=== PATIENT | female | born 1965 | race Caucasian/White ===

== ENCOUNTER 2016-06-28 13:24 | Inpatient (IN) | payer OTHER ==
[~2016-06-28] VITALS: Ht 165.1 cm; Wt 127.0 kg
[2016-06-28 16:16] VITALS: PULSE 69
[2016-06-28 16:46] VITALS: BP 148/71; RESP 15
[2016-06-28 19:45] VITALS: Ht 165.1 cm; Wt 127.0 kg
[2016-06-28 20:00] VITALS: BP 137/73; RESP 20
[2016-06-28 20:11] VITALS: PULSE 61
--- NOTE | 2016-06-28 20:44 | HP ---
Date/Time of Note Date/Time of Note DATE: 06/28/16 TIME: 20:43 Assessment/Plan VTE Prophylaxis VTE Prophylaxis Intervention: other (Lovenox) Lines/Catheters IV Catheter Type (from Nrsg): Peripheral IV Assessment/Plan Assessment/Plan 1) Lower Extremity Swelling, Bilateral - Admit to Telemetry - Serial Enzymes x 2 more sets, although it has been 18 hours+ since the first set was done - EKG in AM - Consider Echocardiogram - CONSULT: Cardio - AM Team to call 2) Nausea, Left Arm Pain, Left Neck Pain, Upper Back Pain - Rule Out Cardiac Cause - See above 3) Acid Reflux - Pepcid BID HPI/ROS Admit Date/Time Admit Date/Time Jun 28, 2016 at 15:45 Hx of Present Illness Patient is a Direct Admit from [facility]. It seems she was transferred for Chest Pain R/O HI, but patient denies any Chest Pain. She states she woke up on the morning of 06/28 with nausea, pain in her left arm and in the right side of her neck and in her upper back. She states that the pain has been fading all day, but that it flares up occasionally. (While in the [place] [facility], I am not sure what treatment she received as no documentation was included in the Transfer Paperwork other than lab resualt, LE Doppler prelim results, an EKG and a CD of her CXR) Patient denies any cardiac history, but states she had the same pain 2 days prior. No associated sweating or SOB. However, patient states she gets SOB easily when hiking or going up stairs. She mentions aches all over her body, but when asked specifically about cramps in her calves when she walks, relieved by rest, she mentions cramps in her feet, but not sure if they are cramps or just pains from being on her feet so long at work. Feels that these pains improve with rest. The reason she came in for evaluation is because of the swelling in her legs over the past 2 weeks. She has not had swelling this bad before. No recent weight gain. Previously up to 300. Tried and lost 30, but up 10 lbs at 280 now. No cough, wheeze or SOB. Currently mild nausea and a mild headache. No chest pain. No fever, chills, dizziness, cough, wheeze, sore throat or other specific symptoms. LABS: WBC: 9.1 with normal differential H/H: 13.1/39.9 with normal indices PLT: 215 Na+: 142 K+: 4.2 Cl-: 103 CO2: 27 BUN/Cr: 16/0.66 Ca: 9.0 proBNP: 28 Trop I: <0.01 UA: Negative/WNL except s.g. >= 1.030 LE Doppler, Bilateral LE: No DVTs EKG done there, interpreted by me tonight: NSR @ 85 BPM. No acute changes. NOTE: I spoke with VINCE Osuna at the [facility] @ [phone] and explained the situation. He informed me that the patient left there at 3:54 pm, and that the above labs were the only set done, and they were done at 0335. He pulled up the notes and faxed them to the number provided by our staff, and they had not arrived before I left the floor. ROS General: Admits: Denies: Fever, Chills, Poor Appetite, Generalized Body Aches Eyes: Admits: Denies: Blurry Vision, Double Vision HENT: Admits: Denies: Ear Pain/Pressure, Runny/Stuffy Nose, Sore Throat Cardiovascular: Admits: Leg Swelling, bilateral Denies: Chest Pain, Palpitations Pulmonary: Admits: Shortness of Breath with exertion Denies: Cough, Wheeze Gastrointestinal: Admits: Nausea, Diarrhea once in the other ER, watery, no blood or mucus Denies: Abdominal Pain, Vomiting, Blood in Stool, Black-Colored Stool Urogenital: Admits: Denies: Burning with Urination, Urinary Frequency Musculoskeletal: Admits: Multiple aches and pains, but nothing new or significant. No diagnosis of arthritis or fibromyalgia Denies: Neurological: Admits: Headache Denies: Dizziness, Numbness, Tingling, Shooting Pains Integumentary: Admits: Rash an the lower part of both legs, present for 2 days. 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 [employer] Alcohol Use: none Smoking Status: Never smoker Drug Use: none Exam/Review of Systems Vital Signs Vitals Vital Signs Date Time Temp Pulse Resp B/P Pulse Ox O2 Delivery O2 Flow Rate FiO2 06/28/16 20:11 61 06/28/16 16:46 97.9 15 148/71 94 Exam Exam General: Morbidly obese female, sleeping soundly but rouses with a start, alert and oriented x 3, in no acute distress VS reviewed, unremarkable Eyes: Sclera White, EOMI HENT: Normocephalic/Atraumatic, External Ears/Nose Normal, Moist Mucus Membranes Neck: Supple, Trachea Midline Cardiovascular: Normal Rate, Normal Rhythm, Normal S1 and S2, No Murmur, No Extra Sounds, Radial pulse +2/4, 1+ pitting edema to upper 1/3 bilateral LE. DP pulses +2/4 and equal bilateral feet. Pulmonary: Clear to Auscultation Bilaterally, Normal Respiratory Effort, No Rales, Rhonchi or Wheezes Gastrointestinal: Normoactive Bowel Sounds, Obese, Soft, Non-Tender/Non- Distended Urogenital: Deferred Musculoskeletal: Normal Muscle Bulk and Tone Neurological: CN II - XII Grossly Intact, Non-Focal, Speech Normal Integumentary: Normal Moisture and Temperature, Good Turgor, No Jaundice, Circumfirential band of multiple red, petechial spots (2 - 4 mm in diameter), approximately 8 cm wide located on Right Lower Extremity, lower 1/3. On Left, in same area is a diffuse paink rash that blanches and scattered light pink macules, approximately 1 - 1.5 cm in diameter that do not seem to young. No induration, fluctuance or other local skin findings. Lymphatic: No Cervical Lymphadenopathy Psychiatric: Appropriate Mood and Affect, Good Eye Contact SYED MCCAULEY DO Jun 28, 2016 20:44
[2016-06-28] MEDS ORDERED: HYDROCODONE/APAP (5/325) TAB PO PRN (21:00)
[2016-06-28] MEDS ORDERED: morphine 2 MG INJ IV PRN (21:00)
[2016-06-28] MEDS ORDERED: NACL 0.9% 3 ML SYG IV SCH (21:00)
[2016-06-28] MEDS ORDERED: ACETAMINOPHEN 325 MG TAB PO PRN (21:00)
[2016-06-28] MEDS ORDERED: NITROGLYCERIN (SL) 0.4 MG TAB SL PRN (21:00)
[2016-06-28] MEDS ORDERED: METOCLOPRAMIDE 10 MG INJ IV PRN (21:00)
[2016-06-28 21:37] LABS: CREATINE KINASE 52 IU/L (23-200)
[2016-06-28] MEDS: FAMOTIDINE 20 MG TAB PO SCH (21:42)
[2016-06-28 21:47] LABS: CK-MB 0.27 ng/ml (0.0-2.4)
[2016-06-28 21:52] LABS: TROPONIN-I < 0.012 ng/ml (0.00-0.12)
[2016-06-29] VITALS (12 sets, daily range): BP systolic 114–145; BP diastolic 58–71; PULSE 55–73; RESP 15–20
[2016-06-29 02:48] LABS: CREATINE KINASE 33 IU/L (23-200)
[2016-06-29 02:59] LABS: CK-MB < 0.22 ng/ml (0.0-2.4)
[2016-06-29 03:08] LABS: TROPONIN-I < 0.012 ng/ml (0.00-0.12)
[2016-06-29 07:25] LABS: ADD SCAN DIFF NO
[2016-06-29 07:38] LABS: BASOPHILS % 0.5 % (0.0-2.0); EOSINOPHILS # 0.4 10^3/ul (0.0-0.5); EOSINOPHILS % 4.9 % (0.0-7.0); HEMATOCRIT 40.9 % (37.0-47.0); HEMOGLOBIN 13.1 g/dl (12.0-16.0); LYMPHOCYTES # 2.7 10^3/ul (0.8-2.9); LYMPHOCYTES % 34.1 % (15.0-51.0); MEAN CORPUSCULAR HEMOGLOBIN 29.2 pg (29.0-33.0); MEAN CORPUSCULAR VOLUME 91.3 fl (82.0-101.0); MEAN PLATELET VOLUME 9.5 fl (7.4-10.4); MONOCYTE # 0.5 10^3/ul (0.3-0.9); MONOCYTES % 6.8 % (0.0-11.0); NEUTROPHIL # 4.3 10^3/ul (1.6-7.5); NEUTROPHILS % 53.4 % (39.0-77.0); PLATELET COUNT 223 10^3/UL (140-415); RED BLOOD COUNT 4.48 10^6/ul (4.20-5.40); RED CELL DISTRIBUTION WIDTH 13.2 % (11.5-14.5)
[2016-06-29 07:54] LABS: ALBUMIN 3.4 g/dl (3.3-4.9)
[2016-06-29 07:56] LABS: POTASSIUM 4.7 mmol/L (3.5-5.1)
[2016-06-29 07:57] LABS: CREATININE 0.66 mg/dl (0.44-1.00)
[2016-06-29 07:58] LABS: ALBUMIN/GLOBULIN RATIO 1.25; BILIRUBIN,INDIRECT 0.4 mg/dl (0-1.1); BILIRUBIN,TOTAL 0.4 mg/dl (0.2-1.3); CALCIUM 8.7 mg/dl (8.4-10.2); TOTAL PROTEIN 6.1 g/dl (6.1-8.1)
[2016-06-29 07:59] LABS: CHOL/HDL RATIO 3.8 RATIO
[2016-06-29] MEDS: FAMOTIDINE 20 MG TAB PO SCH ×2 (09:25→20:05)
[2016-06-29] MEDS: ENOXAPARIN 40 MG/0.4 ML SYG SC SCH (09:28)
--- NOTE | 2016-06-29 12:28 | PN ---
Date/Time of Note Date/Time of Note DATE: 06/29/16 TIME: 12:27 Assessment/Plan VTE Prophylaxis VTE Prophylaxis Intervention: LMWH Lines/Catheters IV [facility] (from [facility] Saline Lock Urinary Cath still in place: No Assessment/Plan Assessment/Plan 51 yo F with 1. Intermittent Chest pain: No CP at this time 2. Dyspnea on exertion with LE Edema 3. Venous stasis dermatitis 4. Pre DM 5. Remote hx of tobacco use PLAN: * Plan for Cardiology review and probable stress test / complete ACS r/o * f/u echo report and await cardio recs * UA and USS kidneys to eval LE swelling * Hba1c / low carb diet / SSI * Steroid ointment for sin rash * supportive care Prophylaxis: lovenox and pepcid Subjective 24 Hr Interval Summary Free Text/Dictation CP imrpoved , pain had radiated to L arm and neck, pain is not reproducible. Also notes Rash on lower left leg which usually occurs with danisha LE edema Patient also notes difficulty breathing with climbing stairs and ambulating short distances Exam/Review of Systems Vital Signs Vitals Vital Signs Date Time Temp Pulse Resp B/P Pulse Ox O2 Delivery O2 Flow Rate FiO2 06/29/16 12:13 98.5 67 18 139/71 95 Intake and Output 06/28/16 06/28/16 06/29/16 15:00 23:00 07:00 Intake Total 400 ml Output Total 600 ml Balance -200 ml Exam Constitutional: alert, obese, oriented, No distress Psych: nl mood/affect Head: normocephalic Eyes: PERRL ENMT: mucosa pink and moist Neck: supple Respiratory: clear to auscultation, diminished breath sounds Cardiovascular: nl pulses, regular rate and rhythm Gastrointestinal: bowel sounds, non-tender, soft Extremities: edema Neurological: nl mental status, No focal weakness Skin: rash or lesions Results Result Diagram: 06/29/16 0653 06/29/16 0653 Results 24 hrs Laboratory Tests Test 06/28/16 21:13 06/29/16 02:25 06/29/16 06:53 Creatine Kinase 52 33 Creatine Kinase Index 0.5 0.7 Creatinine Kinase MB (Mass) 0.27 < 0.22 Troponin I < 0.012 < 0.012 White Blood Count 8.0 Red Blood Count 4.48 Hemoglobin 13.1 Hematocrit 40.9 Mean Corpuscular Volume 91.3 Mean Corpuscular Hemoglobin 29.2 Mean Corpuscular Hemoglobin Concent 32.0 Red Cell Distribution Width 13.2 Platelet Count 223 Mean Platelet Volume 9.5 Neutrophils % 53.4 Lymphocytes % 34.1 Monocytes % 6.8 Eosinophils % 4.9 Basophils % 0.5 Nucleated Red Blood Cells % 0.0 Neutrophils # 4.3 Lymphocytes # 2.7 Monocytes # 0.5 Eosinophils # 0.4 Basophils # 0.0 Nucleated Red Blood Cells # 0.0 Sodium Level 139 Potassium Level 4.7 Chloride Level 106 Carbon Dioxide Level 29 Anion Gap 9 Blood Urea Nitrogen 10 Creatinine 0.66 Glucose Level 100 Calcium Level 8.7 Total Bilirubin 0.4 Direct Bilirubin 0.00 Indirect Bilirubin 0.4 Aspartate Amino Transf (AST/SGOT) 17 Alanine Aminotransferase (ALT/SGPT) 28 Alkaline Phosphatase 50 Total Protein 6.1 Albumin 3.4 Globulin 2.70 Albumin/Globulin Ratio 1.25 Triglycerides Level 111 Cholesterol Level 174 LDL Cholesterol, Calculated 107 HDL Cholesterol 45 Cholesterol/HDL Ratio 3.8 Medications Medications Current Medications Metoclopramide HCl (Reglan) 10 mg Q6H PRN IV NAUSEA AND/OR VOMITING; Start 06/28 at 21:00 Nitroglycerin (Nitroglycerin (Sl Tab) 0.4 Mg) 1 tab Q5M PRN SL CHEST PAIN; Start 06/28/16 at 21:00 Acetaminophen (Tylenol Tab) 650 mg Q6H PRN PO PAIN LEVEL 1-3 OR FEVER; Start at 21:00 Acetaminophen/ Hydrocodone Bitart ([place] (5/325)) 1 tab Q6H PRN PO PAIN LEVEL 4 -6 Last administered on 06/29/16 00:09; Admin Dose 1 TAB; Start 06/28/16 at 21:00 Morphine Sulfate (morphine) 2 mg Q4H PRN IV PAIN LEVEL 7-10; Start 06/28/16 at 21:00 Famotidine (Pepcid) 20 mg Q12 PO Last administered on 06/29/16 09:25; Admin Dose 20 MG; Start 06/28/16 at 21:00 Enoxaparin Sodium (Lovenox) 40 mg DAILY SC Last administered on 06/29/16 09:28 ; Admin Dose 40 MG; Start 06/29/16 at 09:00 SARAN LUA Jun 29, 2016 12:28
--- NOTE | 2016-06-29 14:03 | RADRPT ---
PROCEDURE: Retroperitoneal US. CLINICAL INDICATION: pain, swelling TECHNIQUE: Multiple sonographic images of the kidneys and retroperitoneum were obtained. The imag es were reviewed on a PACS workstation. COMPARISON: No prior studies are available for comparison. FINDINGS: The kidneys are normal in size, contour, cortical thickness and cortical echogenicity. The right kidney measures 11.4 cm. The left kidney measures 13.0 cm. No kidney stones are visualized. There is no evidence for hydronephrosis. The urinary bladder is normal. RPTAT: AA IMPRESSION: Unremarkable retroperitoneal ultrasound. .Matthias Tompkins MD, Date Time Electronically viewed and signed by .Matthias Tompkins MD, on 06/29/2016 14:03 .S/
[2016-06-29] MEDS: TRIAMCINOLONE ACET 0.1% 15 GM OINT TOP SCH ×2 (17:25→20:05)
--- NOTE | 2016-06-29 18:37 | CONS ---
DATE OF ADMISSION: 06/28/2016 DATE OF CONSULTATION: 06/29/2016 TYPE OF CONSULTATION: Cardiology HISTORY OF PRESENT ILLNESS: Ms. Siddiqui is a 51-year-old woman originally from [place], who comes to the hospital now for evaluation of abdominal discomfort as well as chest pain. Chest pain was midst ernal, radiating into the left upper extremity. The patient has risk factors for prediabetes, hyper tension and a distant history of tobacco use. For now, conservative therapy is expected. The patie nt will have a stress test while she is in the hospital and risk stratification for ischemia. For n ow, we will continue her treatment of abdominal symptoms and possible cellulitis. ALLERGIES: NO KNOWN DRUG ALLERGIES. SOCIAL HISTORY: She has a history of tobacco use, but quit 20 years ago. Does not drink, does not use any drugs. FAMILY HISTORY: Negative for sudden cardiac or premature coronary artery disease. MEDICATIONS: Currently, the patient is on: 1. Colace. 2. Subcutaneous Lovenox. 3. Metoclopramide. 4. Nitroglycerin. 5. Acetaminophen. 6. Famotidine. REVIEW OF SYSTEMS: CONSTITUTIONAL: No fevers, no chills, no recent weight changes. HEENT: No changes in vision or hearing. CARDIAC: Chest pain as reported. RESPIRATORY: Shortness of breath, chronic. GASTROINTESTINAL: No nausea, vomiting, diarrhea, constipation. GENITOURINARY: No dysuria, hematuria, or difficult urination. NEUROLOGIC: No focal neurologic deficits. HEMATOLOGIC: No history of bruising. PSYCHIATRIC: No known history of psychiatric illness. PHYSICAL EXAMINATION: VITAL SIGNS: Temperature is 97.7, heart rate is 72, blood pressure 145/70. GENERAL: She is an obese woman in no acute distress, alert and oriented x3, aware of her condition. HEAD: Normocephalic, atraumatic. Eyes anicteric. NECK: Supple. JVD 6 to 7 cm. There is no lymphadenopathy, no thyromegaly. HEART: Regular with soft holosystolic murmur at the apex. PMI is minimally nondisplaced. There is no S3. LUNGS: Coarse at the bases. ABDOMEN: Distended, bowel sounds are present. There is no hepatosplenomegaly. GENITOURINARY: Grossly intact. EXTREMITIES: Show no clubbing, cyanosis, edema. SKIN: . NEUROLOGICAL: She is able to move her extremities. LABORATORY DATA: White blood cell count is 8.0, hemoglobin is 10.1. Troponin negative at 0.012 x2. Creatinine is 0.66. ASSESSMENT AND PLAN: 1. Chest pain. The patient has chest pain as described. The patient did not rule in for ischemia. She has some risk factors for coronary artery disease. Will initiate ischemic risk stratification inpatient while the patient is here. Continue to monitor. 2. Hypertension. Blood pressure is on the high side. We will add a small dose of a beta ac a nd follow expectantly. I will initiate the patient on aspirin, she is prediabetic and hypertensive. 3. History of prediabetes. Continue to monitor. Sugars are well controlled now. 4. History of dyslipidemia. LDL well maintained to 107. 5. Obesity. Continued weight loss advised. I would like to thank, Dr. Ann, for referring this patient for my evaluation. Dictated By: CISCO CARLSON MD ML/LUIS FERNANDO Conf#: [id number] DID#: [id number]
--- NOTE | 2016-06-29 18:40 | RADRPT ---
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 Physician: SARAN LUA Quality: Adequate Procedures: Transthoracic echocardiogram with complete 2D, M-Mode, and doppler examination. Indications: Chest Pain. 2D/M Mode Doppler Measurement Value Normal Ranges Measurement Value Normal Ranges LVIDd 2D 4.5 3.5 - 5.6 cm AV Peak [place] 1.2 m/sec LVIDs 2D 3.1 2.1 - 4.1 cm AV Peak PG 5.4 mmHg LVPWd 2D 1.2 0.6 - 1.1 cm LVOT Peak [place] 0.8 m/sec IVSd 2D 1.2 0.6 - 1.1 cm LVOT Peak PG 2.6 mmHg AoR Diam 2D 3.4 2.0 - 3.7 cm MV E Peak [place] 0.9 m/sec EDV 2D 94.2 cm3 MV A Peak [place] 0.9 m/sec ESV 2D 28.6 cm3 MV E/A 1.0 MV Decel Time 253 msec MV Decel [place] 3 MV E/A 1.0 Findings Left Ventricle: Normal left ventricular systolic function. Normal left ventricular cavity size. Mild concentric left ventricular hypertrophy. Ejection fraction is visually estimated at 65 %. Abnormal Diastolic Function. Right Ventricle: Normal right ventricular size. Normal right ventricular systolic function. Left Atrium: The left atrium is normal in size. Right Atrium: The right atrium is normal in size. Mitral Valve: Mild mitral annular calcification. Trace mitral regurgitation. Aortic Valve: Aortic valve not well visualized. Trace aortic valve regurgitation. Tricuspid Valve: Tricuspid valve not well visualized. There is trace tricuspid regurgitation. Pulmonic Valve: There is trace pulmonic regurgitation. Pericardium: Normal pericardium with no significant pericardial effusion. Aorta: Normal aortic root. IVC: The IVC is not well visualized. Conclusions 1.Normal left ventricular systolic function. Normal left ventricular cavity size. Mild concentric left ventricular hypertrophy. Ejection fraction is visually estimated at 65 %. Abnormal Diastolic Function. 2.Tricuspid valve not well visualized. There is trace tricuspid regurgitation. 3.Aortic valve not well visualized. Trace aortic valve regurgitation. 4.Mild mitral annular calcification. Trace mitral regurgitation. Electronically Signed By: Donavan Haynes 29-Jun-2016 18:40:19 -0700 Patient Name: JASMINE NICHOLS Study Date: 29-Jun-[id number]
[2016-06-29] MEDS: DOCUSATE SODIUM 100 MG CAP PO SCH (20:06)
[2016-06-29 23:54] LABS: ADD UMIC YES; URINE BILIRUBIN (Dip) NEGATIVE (NEGATIVE); URINE BLOOD (Dip) TRACE (NEGATIVE); URINE COLOR LT. YELLOW (YELLOW); URINE GLUCOSE (Dip) NEGATIVE (NEGATIVE); URINE KETONES (Dip) NEGATIVE (NEGATIVE); URINE LEUKOCYTE ESTERASE (Dip) NEGATIVE (NEGATIVE); URINE NITRITE (Dip) NEGATIVE (NEGATIVE); URINE TOTAL PROTEIN (Dip) NEGATIVE (NEGATIVE); URINE UROBILINOGEN (Dip) 0.2 E.U./dL (0.1-1.0)
[2016-06-29 23:55] LABS: BACTERIA,URINE MODERATE; SQUAMOUS EPITHELIAL CELL,UR MODERATE
[2016-06-30] VITALS (7 sets, daily range): BP systolic 109–125; BP diastolic 53–70; PULSE 56–66; RESP 16
[2016-06-30 06:45] LABS: ADD SCAN DIFF NO
[2016-06-30 06:49] LABS: BASOPHILS % 0.5 % (0.0-2.0); EOSINOPHILS # 0.4 10^3/ul (0.0-0.5); EOSINOPHILS % 4.3 % (0.0-7.0); HEMATOCRIT 42.8 % (37.0-47.0); HEMOGLOBIN 13.6 g/dl (12.0-16.0); LYMPHOCYTES # 2.7 10^3/ul (0.8-2.9); LYMPHOCYTES % 31.1 % (15.0-51.0); MEAN CORPUSCULAR HGB CONC 31.8 g/dl (32.0-37.0); MEAN CORPUSCULAR VOLUME 91.3 fl (82.0-101.0); MEAN PLATELET VOLUME 9.3 fl (7.4-10.4); MONOCYTE # 0.5 10^3/ul (0.3-0.9); MONOCYTES % 6.3 % (0.0-11.0); NEUTROPHIL # 4.9 10^3/ul (1.6-7.5); NEUTROPHILS % 57.6 % (39.0-77.0); PLATELET COUNT 239 10^3/UL (140-415); RED BLOOD COUNT 4.69 10^6/ul (4.20-5.40); RED CELL DISTRIBUTION WIDTH 13.2 % (11.5-14.5); WHITE BLOOD COUNT 8.5 10^3/ul (4.8-10.8)
[2016-06-30 06:57] LABS: INR 0.97; PROTIME 12.9 Sec (12.2-14.2)
[2016-06-30 06:58] LABS: PARTIAL THROMBOPLASTIN TIME 25.1 Sec (25.0-35.0)
[2016-06-30 07:02] LABS: POTASSIUM 4.8 mmol/L (3.5-5.1)
[2016-06-30 07:05] LABS: CREATININE 0.67 mg/dl (0.44-1.00)
[2016-06-30 07:06] LABS: CALCIUM 8.6 mg/dl (8.4-10.2); MAGNESIUM 1.9 mg/dl (1.7-2.5); PHOSPHORUS 4.6 mg/dl (2.5-4.9)
[2016-06-30] MEDS: DOCUSATE SODIUM 100 MG CAP PO SCH (09:00)
[2016-06-30] MEDS ORDERED: ASPIRIN 81 MG TAB PO SCH (09:00)
[2016-06-30] MEDS: FAMOTIDINE 20 MG TAB PO SCH (09:18)
[2016-06-30] MEDS: ENOXAPARIN 40 MG/0.4 ML SYG SC SCH (09:22)
--- NOTE | 2016-06-30 11:32 | PN ---
Date/Time of Note Date/Time of Note DATE: 06/30/16 TIME: 11:30 Assessment/Plan VTE Prophylaxis VTE Prophylaxis Intervention: LMWH Lines/Catheters IV [facility] (from [facility]): Saline Lock Urinary Cath still in place: No Assessment/Plan Assessment/Plan 51 yo F with 1. Intermittent Chest pain: No CP at this time 2. Dyspnea on exertion with LE Edema likely 2/2 Diastolic dysfxn noted on CXR 3. Venous stasis dermatitis 4. Pre DM 5. Remote hx of tobacco use 6. Probable UTI PLAN: * Appreciate Cardio review, f/u recs * empiric abx for UTI * Low dose lasix * Hba1c / low carb diet / SSI * Steroid ointment for sin rash * supportive care Prophylaxis: lovenox and pepcid Exam/Review of Systems Vital Signs Vitals Vital Signs Date Time Temp Pulse Resp B/P Pulse Ox O2 Delivery O2 Flow Rate FiO2 06/30/16 08:23 59 06/30/16 05:08 98.1 16 109/59 97 Intake and Output 06/29/16 06/29/16 06/30/16 15:00 23:00 07:00 Intake Total 800 ml 600 ml Balance 800 ml 600 ml Results Result Diagram: 06/30/16 0535 06/30/16 0535 Results 24 hrs Laboratory Tests Test 06/29/16 20:00 06/30/16 05:35 Urine Color LT. YELLOW Urine Clarity CLEAR Urine pH 7.0 Urine Specific [place] 1.010 Urine Ketones NEGATIVE Urine Nitrite NEGATIVE Urine Bilirubin NEGATIVE Urine Urobilinogen 0.2 E.U./dL Urine Leukocyte Esterase NEGATIVE Urine Microscopic RBC 2-5 Urine Microscopic WBC 0-2 Urine Squamous Epithelial Cells MODERATE Urine Bacteria MODERATE Urine Hemoglobin TRACE Urine Glucose NEGATIVE Urine Total Protein NEGATIVE White Blood Count 8.5 Red Blood Count 4.69 Hemoglobin 13.6 Hematocrit 42.8 Mean Corpuscular Volume 91.3 Mean Corpuscular Hemoglobin 29.0 Mean Corpuscular Hemoglobin Concent 31.8 L Red Cell Distribution Width 13.2 Platelet Count 239 Mean Platelet Volume 9.3 Neutrophils % 57.6 Lymphocytes % 31.1 Monocytes % 6.3 Eosinophils % 4.3 Basophils % 0.5 Nucleated Red Blood Cells % 0.0 Neutrophils # 4.9 Lymphocytes # 2.7 Monocytes # 0.5 Eosinophils # 0.4 Basophils # 0.0 Nucleated Red Blood Cells # 0.0 Prothrombin Time 12.9 Prothrombin Time Ratio 1.0 INR International Normalized Ratio 0.97 Activated Partial Thromboplast Time 25.1 Sodium Level 140 Potassium Level 4.8 Chloride Level 105 Carbon Dioxide Level 29 Anion Gap 11 Blood Urea Nitrogen 14 Creatinine 0.67 Glucose Level 108 Calcium Level 8.6 Phosphorus Level 4.6 Magnesium Level 1.9 Medications Medications Current Medications Metoclopramide HCl (Reglan) 10 mg Q6H PRN IV NAUSEA AND/OR VOMITING; Start 06/28 at 21:00 Nitroglycerin (Nitroglycerin (Sl Tab) 0.4 Mg) 1 tab Q5M PRN SL CHEST PAIN; Start 06/28/16 at 21:00 Acetaminophen (Tylenol Tab) 650 mg Q6H PRN PO PAIN LEVEL 1-3 OR FEVER; Start at 21:00 Acetaminophen/ Hydrocodone Bitart ([place] (5/325)) 1 tab Q6H PRN PO PAIN LEVEL 4 -6 Last administered on 06/29/16 00:09; Admin Dose 1 TAB; Start 06/28/16 at 21:00 Morphine Sulfate (morphine) 2 mg Q4H PRN IV PAIN LEVEL 7-10; Start 06/28/16 at 21:00 Famotidine (Pepcid) 20 mg Q12 PO Last administered on 06/30/16 09:18; Admin Dose 20 MG; Start 06/28/16 at 21:00 Enoxaparin Sodium (Lovenox) 40 mg DAILY SC Last administered on 06/30/16 09:22 ; Admin Dose 40 MG; Start 06/29/16 at 09:00 Triamcinolone Acetonide (Kenalog 0.1% Oint) 1 applic BID TOP Last administered on 06/29/16 20:05; Admin Dose 1 APPLIC; Start 06/29/16 at 17:00 Docusate Sodium (Colace) 100 mg BID PO ; Start 06/29/16 at 21:00 Carvedilol (Coreg) 12.5 mg BID PO Last administered on 06/30/16 09:19; Admin Dose 12.5 MG; Start 06/29/16 at 21:00 Aspirin 81 mg 81 mg DAILY PO Last administered on 06/30/16 09:18; Admin Dose 81 MG; Start 06/30/16 at 09:00 Levofloxacin/ Dextrose (Levaquin 500mg/ D5W 100 ml (Pmx)) 100 ml @ 100 mls/hr Q24H IVPB ; Start 06/30/16 at 11:30; Status UNV Procedures Procedures Patient Name: JASMINE NICHOLS Gender: Female Date: 1965 Study Date: 29-Jun-2016 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 Physician: SARAN LUA Quality: Adequate Procedures: Transthoracic echocardiogram with complete 2D, M-Mode, and doppler examination. Indications: Chest Pain. 2D/M Mode Doppler Measurement Value Normal Ranges Measurement Value Normal Ranges LVIDd 2D 4.5 3.5 - 5.6 cm AV Peak [place] 1.2 m/sec LVIDs 2D 3.1 2.1 - 4.1 cm AV Peak PG 5.4 mmHg LVPWd 2D 1.2 0.6 - 1.1 cm LVOT Peak [place] 0.8 m/sec IVSd 2D 1.2 0.6 - 1.1 cm LVOT Peak PG 2.6 mmHg AoR Diam 2D 3.4 2.0 - 3.7 cm MV E Peak [place] 0.9 m/sec EDV 2D 94.2 cm3 MV A Peak [place] 0.9 m/sec ESV 2D 28.6 cm3 MV E/A 1.0 MV Decel Time 253 msec MV Decel [place] 3 MV E/A 1.0 Findings Left Ventricle: Normal left ventricular systolic function. Normal left ventricular cavity size. Mild concentric left ventricular hypertrophy. Ejection fraction is visually estimated at 65 %. Abnormal Diastolic Function. Right Ventricle: Normal right ventricular size. Normal right ventricular systolic function. Left Atrium: The left atrium is normal in size. Right Atrium: The right atrium is normal in size. Mitral Valve: Mild mitral annular calcification. Trace mitral regurgitation. Aortic Valve: Aortic valve not well visualized. Trace aortic valve regurgitation. Tricuspid Valve: Tricuspid valve not well visualized. There is trace tricuspid regurgitation. Pulmonic Valve: There is trace pulmonic regurgitation. Pericardium: Normal pericardium with no significant pericardial effusion. Aorta: Normal aortic root. IVC: The IVC is not well visualized. Conclusions 1. Normal left ventricular systolic function. Normal left ventricular cavity size. Mild concentric left ventricular hypertrophy. Ejection fraction is visually estimated at 65 %. Abnormal Diastolic Function. 2. Tricuspid valve not well visualized. There is trace tricuspid regurgitation. 3. Aortic valve not well visualized. Trace aortic valve regurgitation. 4. Mild mitral annular calcification. Trace mitral regurgitation. Electronically Signed By: Donavan Haynes 29-Jun-2016 18:40:19 -0700 Patient Name: JASMINE NICHOLS Study Date: 29-Jun-2016 SARAN LUA Jun 30, 2016 11:32
[2016-06-30] MEDS ORDERED: REGADENOSON 0.4 MG/5 ML SYG ONE (11:45)
[2016-06-30] MEDS ORDERED: FUROSEMIDE 20 MG INJ IV ONE (12:00)
[2016-06-30] MEDS ORDERED: LEVOFLOXACIN 500MG/D5W (PMX) 100 ML IVPB SCH (12:00)
--- NOTE | 2016-06-30 12:44 | CONS ---
Date/Time of Note Date/Time of Note DATE: 06/30/16 TIME: 12:41 Assessment/Plan Assessment/Plan Chief Complaint/Hosp Course IMp: 1.Chest pain-negative troponin x 2/NL EF by echo this admit 2.HTN 3.HL 4.abnl ecg Recc: -Tele -continue asa -Continue coreg -Lexiscan stress test today Problems: Consultation Date/Type/Reason Admit Date/Time Jun 28, 2016 at 15:45 Initial Consult Date 06/29/2016 Type of Consultation: Cardiology Reason for Consultation Chest pain Referring Provider: SARAN LUA Exam/Review of Systems Vital Signs Vitals Vital Signs Date Time Temp Pulse Resp B/P Pulse Ox O2 Delivery O2 Flow Rate FiO2 06/30/16 08:23 59 06/30/16 05:08 98.1 16 109/59 97 Intake and Output 06/29/16 06/29/16 06/30/16 15:00 23:00 07:00 Intake Total 800 ml 600 ml Balance 800 ml 600 ml Exam Review of Systems: CONSTITUTIONAL: No fevers, chills. PULMONARY: No sob CARDIOVASCULAR:intermittent chest pain GASTROINTESTINAL: No nausea/vomiting. GENITOURINARY: No hematuria/dysuria. MUSCULOSKELETAL: No myagias/arthalgias. PSYCHIATRIC: The patient denies depression. NEUROLOGIC: No weakness Constitutional: alert, oriented Psych: no complaints Head: normocephalic ENMT: mucosa pink and moist Neck: jvd (9 cm water), supple Respiratory: diminished breath sounds (at bases/B) Cardiovascular: regular rate and rhythm Gastrointestinal: non-tender, soft Musculoskeletal: muscle tone (normal) Extremities: edema (none) Neurological: other (No focal deficits) Results Result Diagram: 06/30/16 0535 06/30/16 0535 Results 24 hrs Laboratory Tests Test 06/29/16 20:00 06/30/16 05:35 Urine Color LT. YELLOW Urine Clarity CLEAR Urine pH 7.0 Urine Specific Decker 1.010 Urine Ketones NEGATIVE Urine Nitrite NEGATIVE Urine Bilirubin NEGATIVE Urine Urobilinogen 0.2 E.U./dL Urine Leukocyte Esterase NEGATIVE Urine Microscopic RBC 2-5 Urine Microscopic WBC 0-2 Urine Squamous Epithelial Cells MODERATE Urine Bacteria MODERATE Urine Hemoglobin TRACE Urine Glucose NEGATIVE Urine Total Protein NEGATIVE White Blood Count 8.5 Red Blood Count 4.69 Hemoglobin 13.6 Hematocrit 42.8 Mean Corpuscular Volume 91.3 Mean Corpuscular Hemoglobin 29.0 Mean Corpuscular Hemoglobin Concent 31.8 L Red Cell Distribution Width 13.2 Platelet Count 239 Mean Platelet Volume 9.3 Neutrophils % 57.6 Lymphocytes % 31.1 Monocytes % 6.3 Eosinophils % 4.3 Basophils % 0.5 Nucleated Red Blood Cells % 0.0 Neutrophils # 4.9 Lymphocytes # 2.7 Monocytes # 0.5 Eosinophils # 0.4 Basophils # 0.0 Nucleated Red Blood Cells # 0.0 Prothrombin Time 12.9 Prothrombin Time Ratio 1.0 INR International Normalized Ratio 0.97 Activated Partial Thromboplast Time 25.1 Sodium Level 140 Potassium Level 4.8 Chloride Level 105 Carbon Dioxide Level 29 Anion Gap 11 Blood Urea Nitrogen 14 Creatinine 0.67 Glucose Level 108 Calcium Level 8.6 Phosphorus Level 4.6 Magnesium Level 1.9 Medications Medications Current Medications Metoclopramide HCl (Reglan) 10 mg Q6H PRN IV NAUSEA AND/OR VOMITING; Start 06/28 at 21:00 Nitroglycerin (Nitroglycerin (Sl Tab) 0.4 Mg) 1 tab Q5M PRN SL CHEST PAIN; Start 06/28/16 at 21:00 Acetaminophen (Tylenol Tab) 650 mg Q6H PRN PO PAIN LEVEL 1-3 OR FEVER; Start at 21:00 Acetaminophen/ Hydrocodone Bitart ([place] (5/325)) 1 tab Q6H PRN PO PAIN LEVEL 4 -6 Last administered on 06/29/16 00:09; Admin Dose 1 TAB; Start 06/28/16 at 21:00 Morphine Sulfate (morphine) 2 mg Q4H PRN IV PAIN LEVEL 7-10; Start 06/28/16 at 21:00 Famotidine (Pepcid) 20 mg Q12 PO Last administered on 06/30/16 09:18; Admin Dose 20 MG; Start 06/28/16 at 21:00 Enoxaparin Sodium (Lovenox) 40 mg DAILY SC Last administered on 06/30/16 09:22 ; Admin Dose 40 MG; Start 06/29/16 at 09:00 Triamcinolone Acetonide (Kenalog 0.1% Oint) 1 applic BID TOP Last administered on 06/29/16 20:05; Admin Dose 1 APPLIC; Start 06/29/16 at 17:00 Docusate Sodium (Colace) 100 mg BID PO ; Start 06/29/16 at 21:00 Carvedilol (Coreg) 12.5 mg BID PO Last administered on 06/30/16 09:19; Admin Dose 12.5 MG; Start 06/29/16 at 21:00 Aspirin 81 mg 81 mg DAILY PO Last administered on 06/30/16 09:18; Admin Dose 81 MG; Start 06/30/16 at 09:00 Levofloxacin/ Dextrose (Levaquin 500mg/ D5W 100 ml (Pmx)) 100 ml @ 100 mls/hr Q24H IVPB ; Start 06/30/16 at 12:00 OSBALDO CALLE Jun 30, 2016 12:44
[2016-06-30] MEDS ORDERED: ASPI81TA3 PO (14:15)
[2016-06-30] MEDS ORDERED: KEN1O TOP (14:15)
[2016-06-30] MEDS ORDERED: CARV12.579 PO (14:15)
[2016-06-30] MEDS ORDERED: POTA8CAP PO (14:15)
[2016-06-30] MEDS ORDERED: FURO20TA3 PO (14:15)
--- NOTE | 2016-06-30 14:21 | CARRPT ---
DATE OF PROCEDURE: 06/30/2016 REASON FOR STRESS TESTING: Chest pain, assess for ischemia. BASELINE VITAL SIGNS AND ELECTROCARDIOGRAM: Pulse 58, blood pressure 125/68. Electrocardiogram rev eals sinus bradycardia, rate 58, normal axis, normal intervals, with T-wave inversion and aVL. PROCEDURE: The patient underwent standard Lexiscan infusion protocol over 10 seconds followed by ra hernandez. The patient's test was stopped due to completion of protocol. Maximal achieved blood pr essure during the test 135/66. Maximal heart rate during the test 84. ELECTROCARDIOGRAM FINDINGS: The patient did not develop any new Lexiscan-induced ST changes from ba seline abnormalities. No documented PVCs. SYMPTOMS: The patient had no complaints of chest pain or shortness breath during stress testing. IMPRESSION: 1. No Lexiscan-induced ST or T-wave changes from baseline abnormalities diagnostic of cardiac ische luis. 2. No complaints of chest pain or shortness of breath during stress testing. 3. No documented premature ventricular contractions during stress testing. 4. Report of nuclear images to follow in separate dictation. Dictated By: OSBALDO GOINS/NTS Conf#: [id number] DID#: [id number] CC: KUSHAL JOSEPH MD; SARAN LUA MD;*End*
--- NOTE | 2016-06-30 14:31 | PDOCDIS ---
Discharge Instructions DIAGNOSIS Discharge Diagnosis: Chest pain CONDITION Patient Condition: Stable HOME CARE INSTRUCTIONS: Diet Instructions: Low Fat /CholesterolSpecial Diet: CARDIAC ACTIVITY: Activity Restrictions: Slowly Increase Activity Rest between Activity OTHER ORDERS: Other Orders: Followup with your primary doctor within the next 1-2 weeks. If you don't have one, You may call Dr Zack Canales's office. he's accepting new patients Name, Degree: Zack Canales MD Specialty: Internal Medicine Comments: Office Address: [address] [place] [address] [place], [place] [id number] Office Office You may also call your insurance company to assign one to you. Review your medication list with your nurse before leaving and if you need new prescriptions please let your nurse know. I may have made changes to your home medications or given you new prescriptions , please let your primary doctor know as well. Stay compliant with your medications and report any side effects to your PCP or pharmacist. Return to the ER if you have any concerns and cannot reach your doctors or call your insurance company, they usually have a nurse that can help you. SARAN LUA Jun 30, 2016 14:31
[2016-06-30] MEDS ORDERED: LEVO500T72 PO (14:39)
[2016-06-30] MEDS: TRIAMCINOLONE ACET 0.1% 15 GM OINT TOP SCH (14:54)
--- NOTE | 2016-06-30 15:01 | RADRPT ---
PROCEDURE: Lexiscan myocardial perfusion study CLINICAL INDICATION: 51 -year-old patient complaining of chest pain. TECHNIQUE: Lexiscan 0.4 mg intravenously separate acquisition gated myocardial perfusion SPECT usi ng Tc 99m Myoview 36.3 mCi intravenously at stress and Tc-99m Myoview, 13.2 mCi intravenously at res t was performed using the rest/stress sequence. Poststress Myoview SPECT images were obtained in th e supine position. COMPARISON: No prior studies. FINDINGS: Perfusion images reveal no evidence of perfusion defects. Lexiscan post stress gated SPECT images demonstrate no wall motion abnormalities. IMPRESSION: 1. No evidence of perfusion defects. 2. No wall motion abnormalities. 3. The left ventricle ejection fraction at stress is 58%. A call report was made to Dr. Cook at 03:00 p.m. on June 30, 2016. RPTAT: HH .Suad Faust MD, Date Time Electronically viewed and signed by .Suad Faust MD, MD on 06/30/2016 15:01 .L/
[2016-06-30] MEDS ORDERED: PANT20TA2 PO (15:25)
--- NOTE | 2016-06-30 19:23 | DS ---
DATE OF ADMISSION: 06/28/2016 DATE OF DISCHARGE: 06/30/2016 PRESENTING COMPLAINT: Direct admit for chest pain, rule out IN, nausea, pain in the left and right side of her neck and her upper back. FINAL DIAGNOSES: 1. Chest pain likely KIMBERLI in origin; acute coronary syndrome has been ruled out. The patient needs to be worked up for gastrointestinal causes versus musculoskeletal issues outpatient. 2. Hypertension with good control. 3. Abnormal EKG. 4. Dyslipidemia. 5. Venous stasis dermatitis. 6. Diastolic dysfunction causing lower extremity edema, causing dyspnea on exertion. 7. Remote history of tobacco use. 8. Urinary tract infection. 9. Obesity with BMI of 46.6. CONSULTANTS ON THE CASE: Dr. South Cook, Dr. Donavan Haynes. INTERVENTIONS: The patient was screened for cholesterol, thyroid issues, which all came back negative. She had a urinalysis suggestive of a UTI. She also had a nuclear medicine stress test that was negative. Renal ultrasound was negative as well as a 2D echocardiogram that showed an ejection fraction of 65% without any significant valvular defects. SHORT HOSPITALIZATION COURSE: Full details are available in chart for review. In summary, this is a 51-year-old female. She is obese. She was transferred to us from outside ER for chest pain workup. She was worked up according to protocol and it was determined that her pain was noncardiac in origin. She had a stress test that was normal. She also complained of a rash on her right leg associated with bilateral lower extremity swelling. She had had venous Dopplers done at the referral center that were negative. The rash was treated with triamcinolone ointment and this improved. It was diagnosed as venous stasis dermatitis. At this point, she has been cleared for discharge from cardiology standpoint. She has been given instructions to pick a primary care physician. She is also discharged on oral PPI therapy. If pain persists, the patient is to follow up with her primary care doctor for outpatient referral to GI for possible endoscopy. This has been discussed with her in detail. Questions have been answered. Discharge time has been 40 minutes. Dictated By: SARAN LUA MD BA/NTS Conf#: [id number] DID#: [id number] CC: KUSHAL JOSEPH MD;*EndCC* [facility]
--- NOTE | 2016-07-02 15:18 | RADRPT ---
Vent Rate: 65 bpm RR Interval: 0 msec RI Interval: 172 msec QRS Duration: 86 msec QT Interval: 402 msec QTC Interval: 418 msec P-R-T [place]: 35 - 51 - 45 degrees Normal sinus rhythm Normal ECG Electronically Signed By: Sahil Carrillo [id number]
== END 2016-06-30 17:49 | disposition home or self-care (01) | DRG 313 ==
LOC: MS4 15:45
PROVIDERS: ADMIT Internal Medicine; ATTEND Internal Medicine
DX: R07.89 Other chest pain (principal); Z68.42 Body mass index [BMI] 45.0-49.9, adult; E66.01 Morbid (severe) obesity due to excess calories; L03.116 Cellulitis of left lower limb; N39.0 Urinary tract infection, site not specified; I10 Essential (primary) hypertension; R11.0 Nausea; M79.602 Pain in left arm; M54.2 Cervicalgia; M54.9 Dorsalgia, unspecified; K21.9 Gastro-esophageal reflux disease without esophagitis; M79.604 Pain in right leg; R23.3 Spontaneous ecchymoses; R06.00 Dyspnea, unspecified; I83.12 Varicose veins of left lower extremity with inflammation; R73.03 Prediabetes
CPT/HCPCS: 76775; 78452; 80048; 80053; 80061; 81001; 81003; 82550; 82553; 83735; 84100; 84443; 84484; 85025; 85610; 85730; 93005; 93017; 93306; J1940; A9500; A9505; J1650; J1956; J2785